=== PATIENT | male | born 1990 | race Caucasian/White ===

== ENCOUNTER 2020-06-13 11:00 | Observation (INO) | payer MEDICARE, OTHER ==
[~2020-06-13] VITALS: Ht 172.7 cm; Wt 88.0 kg
[2020-06-13 13:27] LABS: HEMOGLOBIN 15.7 gm/dl (14.0-17.5); RED BLOOD COUNT 5.47 M/UL (4.20-5.50); WHITE BLOOD COUNT 14.1 K/UL (4.5-11.0)
[2020-06-13 13:59] LABS: BUN/CREATININE RATIO 19 (0-10)
[2020-06-13] MEDS ORDERED: TRAZODONE HCL50 MG PO (17:28)
[2020-06-13] MEDS ORDERED: BACLOFEN10 MG PO (17:30)
[2020-06-14 00:44] LABS: HEMOGLOBIN 14.8 gm/dl (14.0-17.5); RED BLOOD COUNT 5.23 M/UL (4.20-5.50)
[2020-06-14 00:47] LABS: WHITE BLOOD COUNT 9.3 K/UL (4.5-11.0)
[2020-06-14 01:06] LABS: BUN/CREATININE RATIO 17 (0-10)
== END 2020-06-14 13:52 | disposition home or self-care (01) ==
LOC: ER1 11:00 → ZEROF 15:57 → M/S 17:14
PROVIDERS: Family Medicine; Physician Assistant; ADMIT Internal Medicine
DX: R00.1 Bradycardia, unspecified (principal); R77.8 Other specified abnormalities of plasma proteins; R07.9 Chest pain, unspecified; R00.2 Palpitations; G35 Multiple sclerosis; R55 Syncope and collapse; G47.00 Insomnia, unspecified; F41.9 Anxiety disorder, unspecified; Z79.899 Other long term (current) drug therapy; Z20.822 Contact with and (suspected) exposure to COVID-19; Z90.89 Acquired absence of other organs
CPT/HCPCS: ECHO; 36415; 71045; 80048; 80053; 80061; 82550; 82553; 83735; 83874; 83880; 84439; 84443; 84484; 85025; 85379; 93005; 93306; 99285; G0378; U0002

== ENCOUNTER → 2020-07-13 | Outpatient (CLI) | payer MEDICARE, OTHER ==
[~2020-07-13] MED LIST: BACLOFEN10 MG PO; TORADOL 10 MG T10 MG PO; TRAZODONE HCL50 MG PO; ZYRTEC10 MG PO
== END ==
LOC: MRI 13:38
DX: M21.379 Foot drop, unspecified foot (principal); G35 Multiple sclerosis; R90.89 Other abnormal findings on diagnostic imaging of central nervous system
CPT/HCPCS: 70553; 72148; 72156; A9577

== ENCOUNTER → 2020-07-14 | Outpatient (CLI) | payer MEDICARE, OTHER ==
[~2020-07-14] VITALS: Ht 172.7 cm; Wt 88.5 kg
== END ==
LOC: OPSV 09:29
DX: G35 Multiple sclerosis (principal)
CPT/HCPCS: 96365; J2930; J7030

== ENCOUNTER → 2020-07-15 | Outpatient (CLI) | payer MEDICARE, OTHER ==
[~2020-07-15] VITALS: Ht 172.7 cm; Wt 88.5 kg
== END ==
LOC: OPSV 08:00
DX: G35 Multiple sclerosis (principal)
CPT/HCPCS: 96365; J2930; J7030

== ENCOUNTER → 2020-07-16 | Outpatient (CLI) | payer MEDICARE, OTHER ==
[~2020-07-16] VITALS: Ht 172.7 cm; Wt 88.5 kg
== END ==
LOC: OPSV 07:58
DX: G35 Multiple sclerosis (principal)
CPT/HCPCS: 96365; J2930; J7030

== ENCOUNTER → 2020-09-14 | Outpatient (CLI) | payer MEDICARE, OTHER ==
[2020-09-14 15:18] LABS: HEMOGLOBIN 15.5 gm/dl (14.0-17.5); RED BLOOD COUNT 5.33 M/UL (4.20-5.50); WHITE BLOOD COUNT 7.7 K/UL (4.5-11.0)
[2020-09-15 05:09] LABS: IMMUNOGLOBULIN A, QN, SERUM 135 mg/dL (90-386); IMMUNOGLOBULIN G, QN, SERUM 959 mg/dL (603-1613); IMMUNOGLOBULIN M, QN, SERUM 87 mg/dL (20-172)
[2020-09-15 17:11] LABS: % NK (CD56/16) 13.6 % (1.4-19.4); AB NK (CD56/16) 122 /uL (24-406); ABS.CD19+ LYMPHS 0 /uL (12-645); LYMPHS 11 % (Not Estab.); LYMPHS (ABSOLUTE) 0.9 x10E3/uL (0.7-3.1); WBC 7.5 x10E3/uL (3.4-10.8)
== END ==
LOC: LAB 14:44
PROVIDERS: Nurse Practitioner Family
DX: Z79.899 Other long term (current) drug therapy (principal); R00.1 Bradycardia, unspecified
CPT/HCPCS: 36415; 82784; 85025; 93005

== ENCOUNTER 2020-09-21 02:21 | Emergency (ER) | payer MEDICARE, OTHER ==
[~2020-09-21 02:21] MED LIST changes: -TORADOL 10 MG T10 MG PO; -ZYRTEC10 MG PO
[2020-09-21 02:49] LABS: HEMOGLOBIN 14.9 gm/dl (14.0-17.5); RED BLOOD COUNT 5.16 M/UL (4.20-5.50); WHITE BLOOD COUNT 7.6 K/UL (4.5-11.0)
[2020-09-21 03:19] LABS: BUN/CREATININE RATIO 14 (0-10)
[2020-09-21] MEDS ORDERED: TORADOL 10 MG T10 MG PO (04:01)
[2020-09-21] MEDS ORDERED: ZYRTEC10 MG PO (04:01)
== END 2020-09-21 04:19 | disposition home or self-care (01) ==
LOC: ER1 02:21
PROVIDERS: Physician Assistant
DX: R07.89 Other chest pain (principal); J06.9 Acute upper respiratory infection, unspecified; F41.9 Anxiety disorder, unspecified; Z79.899 Other long term (current) drug therapy; Z90.89 Acquired absence of other organs; Z20.822 Contact with and (suspected) exposure to COVID-19
CPT/HCPCS: 0240U; 71045; 80053; 82550; 82553; 83690; 83874; 84484; 85025; 87081; 87880; 93005; 96374; 96375; 99285; J1885; J2060

== ENCOUNTER 2020-11-23 08:19 | Emergency (ER) | payer MEDICARE, OTHER ==
[~2020-11-23 08:19] MED LIST changes: +TORADOL 10 MG T10 MG PO; +ZYRTEC10 MG PO
[2020-11-23 08:46] LABS: HEMOGLOBIN 15.2 gm/dl (14.0-17.5); RED BLOOD COUNT 5.48 M/UL (4.20-5.50); WHITE BLOOD COUNT 8.9 K/UL (4.5-11.0)
[2020-11-23 09:24] LABS: BUN/CREATININE RATIO 13 (0-10)
== END 2020-11-23 12:46 | disposition home or self-care (01) ==
LOC: ER1 08:19
PROVIDERS: Emergency Medicine
DX: G35 Multiple sclerosis (principal); Z90.89 Acquired absence of other organs
CPT/HCPCS: 70450; 71045; 80053; 81001; 82550; 82553; 83874; 84484; 85025; 85610; 85730; 93005; 96374; 99285; J2930; J7070

== ENCOUNTER 2020-11-24 03:37 | Emergency (ER) | payer MEDICARE, OTHER | END 2020-11-24 05:18 | disposition home or self-care (01) | LOC: ER1 03:37 | DX: R00.2 Palpitations (principal); F41.1 Generalized anxiety disorder; I49.8 Other specified cardiac arrhythmias | CPT/HCPCS: 93005; 96365; 99285; J2930; J7070 ==

== ENCOUNTER → 2020-11-25 | Outpatient (CLI) | payer MEDICARE, OTHER | LOC: OPSV 07:46 | DX: G35 Multiple sclerosis (principal) | CPT/HCPCS: 96365; J2930; J7070 ==

== ENCOUNTER → 2021-03-21 | Outpatient (CLI) | payer MEDICARE, OTHER | LOC: EMI 08:53 | DX: G35 Multiple sclerosis (principal) | CPT/HCPCS: 70553; A9577 ==